=== PATIENT | male | born 1965 | race Caucasian/White ===

== ENCOUNTER 2017-03-18 14:54 | Emergency (ER) | payer OTHER ==
[2017-03-18 17:33] VITALS: BP 158/102
--- NOTE | 2017-03-18 17:53 | UC ---
Ear Complaint HPI - HPI Summary HPI Summary: Pt c/o gradual onset of righ tear pain that has worsened since onset 3-4 days ago. - History of Current Complaint Chief Complaint: UCGeneralIllness Stated Complaint: RIGHT EAR PAIN Time Seen by Provider: 03/18/17 17:22 Hx Obtained From: Patient Onset/Duration: Gradual Onset, Lasting Days, Still Present, Worse Since - osnet Severity Initially: Mild Severity Currently: Moderate Pain Intensity: 8 Associated Signs/Symptoms: Positive: Hearing Loss, URI Symptoms - Allergies/Home Medications Allergies/Adverse Reactions: Allergies Allergy/AdvReac Type Severity Reaction Status Date / Time No Known Allergies Allergy Verified 03/18/17 17:24 Home Medications: Home Medications Dm/P-Ephed/Acetaminoph/Doxylam [Nighttime D Cold-Flu Rlf Liq] 296 ml PO BEDTIME PRN 03/18/17 [History Confirmed 03/18/17] Metoprolol Tartrate TAB* [Lopressor TAB*] 25 mg PO DAILY 03/18/17 [History Confirmed 03/18/17] PMH/Surg Hx/FS Hx/Imm Hx Previously Healthy: Yes - Surgical History Surgical History: None - Family History Known Family History: Positive: Cardiac Disease - Social History Occupation: Employed Full-time Lives: With Family Alcohol Use: Daily Substance Use Type: None Smoking Status (MU): Never Smoked Tobacco Have You Smoked in the Last Year: No Review of Systems Constitutional: Negative Skin: Negative Eyes: Negative ENT: Ear Ache - right ear Respiratory: Negative Cardiovascular: Negative Gastrointestinal: Negative Genitourinary: Negative Motor: Negative Neurovascular: Negative Musculoskeletal: Negative Neurological: Negative Psychological: Negative Is Patient Immunocompromised?: No All Other Systems Reviewed And Are Negative: Yes Physical Exam Triage Information Reviewed: Yes Appearance: Well-Appearing Vital Signs: Initial Vital Signs Temp 100.2 F 03/18/17 17:28 Pulse 101 03/18/17 17:28 Resp 22 03/18/17 17:28 BP 158/102 03/18/17 17:28 Pulse Ox 100 03/18/17 17:28 Vital Signs Reviewed: Yes Eye Exam: Normal ENT Exam: Other ENT: Positive: Other - outer ear canal swelling, tragal tenderness Dental Exam: Normal Neck exam: Normal Respiratory Exam: Normal Respiratory: Positive: No respiratory distress Cardiovascular Exam: Normal Musculoskeletal Exam: Normal Neurological Exam: Normal Psychological Exam: Normal Skin Exam: Normal Ear Complaint Course/Dx - Differential Dx/Diagnosis Differential Diagnosis/HQI/PQRI: Mastoiditis, Otitis Externa, Otitis Media Provider Diagnoses: otitis externa, right ear Discharge - Discharge Plan Condition: Stable Disposition: HOME Prescriptions: Acetic Acid 2 % RIGHT EAR DAILY #1 bottle Neomyc/Polym/HC 1% OTIC SUSP* [Cortisporin Otic Susp 1%*] 4 drop RIGHT EAR Q8H # 1 btl Patient Education Materials: Otitis Externa (ED) Referrals: Kayla Meyers MD [Primary Care Provider] - If Needed
== END 2017-03-18 17:48 | disposition home or self-care (01) ==
LOC: UCCORT 14:54
DX: H60.91 Unspecified otitis externa, right ear (principal)
CPT/HCPCS: 99212; G0463